=== PATIENT | male | born 1995 | race Caucasian/White ===

== ENCOUNTER 2017-03-25 21:16 | Emergency (ER) | payer SELFPAY ==
[~2017-03-25] VITALS: Ht 188 cm; Wt 115.9 kg
[2017-03-25 21:34] VITALS: TEMP 36.7; Ht 188 cm; Wt 115.9 kg
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
[2017-03-25] MEDS ORDERED: XYLOCAINE 1%/SOD BICARB 20 ML VIAL INFIL ONE (23:00)
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
[2017-03-25] MEDS ORDERED: NORCO 5/325MG HOME PACK PO ONE (23:45)
[2017-03-26] VITALS: BP 136/65; PULSE 69; O2SAT 96
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
== END 2017-03-26 00:01 | disposition home or self-care (01) ==
LOC: C.EDB 21:19 → C.EDD 03-26 00:01
DX: S51.011A Laceration without foreign body of right elbow, initial encounter (principal); T14.8 Other injury of unspecified body region; V43.52XA Car driver injured in collision with other type car in traffic accident, initial encounter; Z23 Encounter for immunization

== ENCOUNTER 2017-04-15 22:58 | Emergency (ER) | payer SELFPAY ==
[~2017-04-15] VITALS: Ht 188 cm; Wt 112.6 kg
[2017-04-15 23:02] VITALS: BP 151/84; TEMP 36.3; Ht 188 cm; Wt 112.6 kg
[2017-04-15] MEDS ORDERED: CEPHALEXIN 500MG HOME PACK 1 EA BTL PO ONE (23:30)
[2017-04-15] MEDS ORDERED: CEPH500C PO (23:35)
--- NOTE | 2017-04-15 23:35 | EMERGENCY ROOM VISIT NOTE ---
ED Visit Note First contact with patient: 23:23 CHIEF COMPLAINT: Staple removal HISTORY OF PRESENT ILLNESS: This 21-year-old male patient returns to the ED today for removal of brooke that were placed 21 days ago. There has been no swelling, redness, or drainage from the wound. The patient feels like the laceration is healing well. REVIEW OF SYSTEMS: A 6 system review of systems was completed with positives and pertinent negatives listed in the HPI. PMH: Unchanged from previous visit. ALLERGIES: No known drug allergies PHYSICAL EXAM: Vital Signs: Reviewed Nurse's notes, vital signs stable. GENERAL : This is a 21-year-old male, in no acute distress. SKIN: There is a stapled wound on the right elbow with minimal surrounding erythema. EMERGENCY DEPARTMENT COURSE: 8 brooke were removed without any difficulty and there was no separation of the wound edges. The brooke have been in for 21 days. The patient states he could not get into see his family doctor to have them removed. He presents today to have them removed. When the sutures were removed and there were a few areas of purulent discharge at the site of the staple arm. He will be covered with Keflex. The patient was discharged home in good condition. Current/Historical Medications Scheduled Cephalexin Monohydrate (Keflex), 500 MG PO QID Allergies Coded Allergies: BEE STING (Verified Allergy, Unknown, unk, 04/15/17) Vital Signs Date Time Temp Pulse Resp B/P (MAP) Pulse Ox O2 Delivery O2 Flow Rate FiO2 04/15/17 23:43 79 16 98 04/15/17 23:02 36.3 65 18 151/84 96 Room Air Medications Administered Medications (Trade) Dose Ordered Sig/Nae Route Start Time Stop Time Status Last Admin Dose Admin Cephalexin Monohydrate (Keflex 500MG Home Pack) 1 homepack NOW ONCE PO 04/15/17 23:30 04/15/17 23:31 DC 04/15/17 23:40 1 HOMEPACK Departure Information Impression Primary Impression: Encounter for removal of brooke Dispostion Home / Self-Care Condition GOOD Prescriptions Cephalexin Monohydrate (Keflex) 500 Mg Cap 500 MG PO QID for 5 Days, #20 CAP Prov: Sammie Carranza PA-C 04/15/17 Referrals No Doctor, Assigned (PCP) Patient Instructions [facility] Additional Instructions Keflex as prescribed, until finished Clean the area was soap and water 1-2 times daily Return with any worsening redness, swelling, warmth
[2017-04-15 23:43] VITALS: PULSE 79; O2SAT 98
== END 2017-04-15 23:43 | disposition home or self-care (01) ==
LOC: C.EDB 22:59 → C.EDA 23:43
DX: Z48.02 Encounter for removal of sutures (principal)